=== PATIENT | female | born 1930 | race Caucasian/White ===

== ENCOUNTER 2016-11-09 17:42 | Inpatient (IN) | payer MEDICARE ==
[~2016-11-09] VITALS: Ht 157.5 cm; Wt 54.4 kg
[~2016-11-09 17:42] MED LIST: ACET-1087 PO; AMLO2.5T6 PO; DIT5 PO; ESCI20TA PO; FLUC100T6 PO; GABA100C PO; IMO2 PO; LISI-420 PO; SIMV10TA1 PO; TRAM50TA94 PO
[2016-11-09 17:54] VITALS: BP 113/62
[2016-11-09] MEDS ORDERED: NITROGLYCERIN 0.4 MG TAB SL ONE (17:55)
--- NOTE | 2016-11-09 18:05 | NUR ---
PT BIBA TO BED 5 AT THIS TIME.
[2016-11-09 18:10] LABS: BASOPHILS # (AUTO) 0.2 K/uL (0.00-0.22); EOSINOPHILS # (AUTO) 0.1 K/uL (0-0.4); EOSINOPHILS % (AUTO) 1.9 % (0.0-4.0); HEMATOCRIT 37.2 % (36-48); HEMOGLOBIN 12.1 g/dL (12.0-16.0); LYMPHOCYTES # (AUTO) 1.8 K/uL (2.5-16.5); LYMPHOCYTES % (AUTO) 29.1 % (20.5-51.1); MEAN CORPUSCULAR HEMOGLOBIN 29 pg (27-31); MEAN CORPUSCULAR HGB CONC 33 g/dL (33-37); MEAN CORPUSCULAR VOLUME 89 fL (80-94); MONOCYTES # (AUTO) 0.6 K/uL (0.8-1.0); MONOCYTES % (AUTO) 9.7 % (1.7-9.3); NEUTROPHILS # (AUTO) 3.6 K/uL (1.8-7.7); PLATELET COUNT (AUTO) 225 K/uL (140-450); RED BLOOD CELL COUNT(AUTO) 4.19 MIL/uL (4.20-5.40); RED CELL DISTRIBUTION WIDTH 13.3 % (11.6-13.7); WHITE BLOOD COUNT (AUTO) 6.3 K/uL (4.8-10.8)
--- NOTE | 2016-11-09 18:13 | NUR ---
PATIENT IS AN 86 YO FEMALE BIB EMS FROM [facility] FOR CHEST PAIN TERENCE.
[2016-11-09 18:25] LABS: ANION GAP 11.2 (8-16); CALCIUM 9.4 mg/dL (8.5-10.1); CHLORIDE 104 mmol/L (98-107); CREATININE 1.2 mg/dL (0.6-1.3); GLUCOSE 95 mg/dL (74-106); POTASSIUM 4.2 mmol/L (3.5-5.1); SODIUM SERUM 139 mmol/L (136-145); UREA NITROGEN, BLOOD 36 mg/dL (7-18)
[2016-11-09 18:28] LABS: INR 1.1 (0.8-1.2); PARTIAL THROMBOPLASTIN TIME 23.9 secs (22-35.6); PROTHROMBIN TIME 10.6 secs (10.8-13.4)
[2016-11-09 18:31] LABS: ALANINE AMINOTRANSFERASE 15 U/L (12-78); ALBUMIN 3.3 g/dL (3.4-5.0); ALKALINE PHOSPHATASE 65 U/L (46-116); ASPARTATE AMINOTRANSFERASE 12 U/L (15-37); TOTAL BILIRUBIN 0.3 mg/dL (0.0-1.0); TOTAL PROTEIN, SERUM 6.7 g/dL (6.4-8.2)
[2016-11-09] MEDS ORDERED: NACL 0.9% 1,000 ML IV ONE (18:55)
--- NOTE | 2016-11-09 19:13 | NUR ---
Pt report given to GERMÁN ROJAS. Transfer of care at this time.
[2016-11-09] MEDS ORDERED: LORazepam 1 MG TAB PO PRN (19:50)
[2016-11-09] MEDS ORDERED: HYDROcodone/APAP 5/325 MG 1 TAB TAB PO PRN (19:50)
[2016-11-09] MEDS ORDERED: ACETAMINOPHEN 325 MG TAB PO PRN (19:50)
[2016-11-09] MEDS ORDERED: ONDANSETRON 4 MG/2 ML VIAL IVP PRN (19:50)
[2016-11-09] MEDS ORDERED: LOPERAMIDE 2 MG CAP PO PRN (19:55)
[2016-11-09 20:22] LABS: CHOL/HDL RATIO 3.3 (1-4.5)
--- NOTE | 2016-11-09 20:45 | NUR ---
Patient will be admitted to care of DR GREEN. Admited to TELEMETRY. Will go to room 109B. Belongings list completed. Report to BELTRAN DUNLAP.
--- NOTE | 2016-11-09 21:13 | NUR ---
RECEIVED FROM ER PER EMMANUEL AWAKE AND WITH CONFUSION RT HX. DEMENTIA. SKIN INTACT. DAUGHTER AT BEDSIDE. PT. DX. OF CHEST PAIN /ANGINA. TELEMETRY MONITORING. NO SOB. DENIES PAIN. NO RESTLESSNESS NOTED. IVF SITE TO LEFT AC #22. SKIN INTACT. PT. AFEBRILE. DENIES ANY CHEST PAIN AT THIS TIME. MEDICATED WITH NITRO SL IN ER. TELEMETRY MONITORING. NSR WITH 1 DEGREE AVB NOTED. CARE PLANS DISCUSSED WITH DAUGHTER . CALL LIGHT DEMONSTRATED TO PT. AND DAUGHTER AND CALL LIGHT WITH IN REACH. PT. PLACED ON BED ALARM.
[2016-11-09 21:52] VITALS: BP 103/56
[2016-11-09] MEDS: NACL 0.9% 1,000 ML IV SCH (22:05)
[2016-11-09] MEDS: METOPROLOL 25 MG TAB PO SCH (22:06)
--- NOTE | 2016-11-09 22:18 | NUR ---
PT.S DAUGHTER LEFT. NOTICED MOTHER/PT IS ABLE TO TALK AND UNDERSTAND WELL. ABLE TO ANSWER QUESTIONS AND ABLE TO REMEMBER THINGS WELL FROM PAST. RE-ORIENTED TO CALL LIGHT USE AND WE BOTH AGREED TO PUT THE CALL LIGHT RIGHT BESIDE HER WHERE SHE CAN REACH IT IN BED. PT. WITH WEAKNESS RT TO OLD AGE PER DAUGHTER. ONLY WHEELCHAIR IS USED IN AMBULATING AROUND.
[2016-11-10] VITALS: BP 106/54
--- NOTE | 2016-11-10 01:11 | NUR ---
PT. STILL AWAKE AT THIS TIME. ENCOURAGED TO SLEEP. WATCHING TV. STATED SHE WILL SLEEP IN A LITTLE WHILE. TELEMETRY MONITORING.
--- NOTE | 2016-11-10 01:22 | NUR ---
SLEEPING. CALL LIGHT AT BEDSIDE. BED ALARM ON . NEEDS TO BE REMINDED RT FORGETFULNESS. BILATERAL SEQUENTIALS IN PLACE. TELEMETRY MONITORING.
--- NOTE | 2016-11-10 03:15 | NUR ---
PT. SLEEPING. TURNED TO SIDES BY CNAS. PILLOW SUPPORT TO PRESSURE AREAS. NO CHEST PAIN COMPLAINTS.
[2016-11-10 04:44] VITALS: BP 111/52
--- NOTE | 2016-11-10 05:23 | NUR ---
PT. BEEN SLEEPING BUT WAKES UP EASILY. NO CHEST PAIN NOTED. NEW IVF SITE TO LEFT HAND #22 INTACT AND INFUSING WELL.
--- NOTE | 2016-11-10 07:58 | NUR ---
RECEIVED REPORT FROM BELTRAN RN FOR CONTINUITY OF CARE . PATIENT AWAKE A/OX3 WITH A PERIOD OF CONFUSION. NO S/S OF RESP DISTRESS NOTED, NO COMPLAIN OF PAIN. INCONTINENT OF BOWEL AND BLADDER , SKIN IS INTACT . WILL OFFER BED GERBER Q2 HRS FOR BLADDER TRAINING, AND WILL REPOSITION Q2HRS TO PROTECT SKIN BREAKDOWN. IV SITE LT FOREARM GAUGE 22 INTACT AND PATENT. IVF INFUSING WELL. PLAN OF CARE DISCUSSED WITH THE PATIENT VITALS STABLE WILL CONTINUE TO MONITOR.
[2016-11-10 08:00] VITALS: BP 127/61
[2016-11-10] MEDS: NACL 0.9% 1,000 ML IV SCH ×3 (08:19→20:17)
[2016-11-10] MEDS: METOPROLOL 25 MG TAB PO SCH ×3 (09:00→20:21)
[2016-11-10] MEDS: DOCUSATE SODIUM 100 MG GELCAP PO SCH (09:07)
[2016-11-10] MEDS: ASPIRIN 81 MG TAB.CHEW PO SCH (09:07)
[2016-11-10] MEDS: ESCITALOPRAM 20 MG TAB PO SCH (09:07)
[2016-11-10] MEDS: OXYBUTYNIN 5 MG TAB PO SCH (09:08)
[2016-11-10] MEDS: LISINOPRIL 20 MG TAB PO SCH (09:08)
[2016-11-10] MEDS: GABAPENTIN 100 MG CAP PO SCH (09:08)
[2016-11-10] MEDS: amLODIPine 5 MG TAB PO SCH (09:08)
--- NOTE | 2016-11-10 09:12 | NUR ---
PATIENT HAS BEEN SCREENED AND CATEGORIZED HIGH NUTRITION RISK. PATIENT WILL BE SEEN WITHIN 1-2 DAYS OF ADMISSION. 11/10/16-11/11/[address]
[2016-11-10] MEDS: FLUCONAZOLE 100 MG TAB PO SCH (09:13)
--- NOTE | 2016-11-10 09:30 | NUR ---
DUE MEDS GIVEN TOLERATED WELL , MORNING CARE GIVEN AND REPOSITIONED AT THIS TIME.
--- NOTE | 2016-11-10 11:56 | NUR ---
Review faxed to [facility] at [phone]. Plan to go to [facility].
[2016-11-10 12:01] VITALS: BP 101/56
--- NOTE | 2016-11-10 12:05 | NUR ---
CONFUSED , REORIENTED HER TO THE PERSON AND PLACE , REPOSITIONED , VITALS STABLE NO DISCOMFORT NOTED AT THIS TIME.
--- NOTE | 2016-11-10 12:19 | NUR ---
11/10/16 RD INITIAL ASSESSMENT COMPLETED PLEASE REFER TO NUTRITION ASSESSMENT UNDER CARE ACTIVITY FOR ESTIMATED NUTRITIONAL NEEDS. 1. CONTINUE CARDIAC DIET 2. RD TO FOLLOW-UP 2-3 DAYS; HIGH RISK HARRY LEBLANC RD
--- NOTE | 2016-11-10 14:00 | NUR ---
RELAXED , NO DISTRESS NOTED MELISSA CARE GIVEN AND REPOSITIONED.
[2016-11-10] MEDS ORDERED: DONE10TA91 PO (14:09)
--- NOTE | 2016-11-10 15:00 | NUR ---
DAUGHTER AT THE BED SIDE , [employer] ADMINISTRATOR EXPLAINED THE CODE STATUS AND POLST SIGNED BY THE PATIENT'S DAUGHTER. PATIENT IS DNR.
[2016-11-10 16:15] VITALS: BP 98/43
--- NOTE | 2016-11-10 16:24 | NUR ---
TALKING TO THE DAUGHTER NO DISTRESS NOTED VITALS STABLE AT THIS TIME.
--- NOTE | 2016-11-10 19:20 | NUR ---
RECEIVED REPORT FROM GERMÁN JANG AT BEDSIDE. INITIAL ASSESSMENT COMPLETED. PT AAOX2; EPISODES OF CONFUSION AT TIMES. ORIENTED PT TO ROOM AND SURROUNDINGS; REINFORCEMENT NEEDED. PT'S SKIN IS INTACT. PT HAS IV ON LEFT FOREARM G 22 INFUSING FLUIDS WELL. SAFETY/FALL MEASURES IN PLACE. BED ALARM ON. WILL CONTINUE TO MONITOR PT.
--- NOTE | 2016-11-10 19:29 | NUR ---
SAFETY MAINTAINED CALL LIGHT IN REACH ENDORSE THE CARE TO BYRON DUNLAP
[2016-11-10 20:00] VITALS: BP 99/58
--- NOTE | 2016-11-10 20:00 | NUR ---
PT TURNED/REPOSITIONED. PT TOLERATED IT WILL.
[2016-11-10] MEDS: DONEPEZIL 10 MG TAB PO SCH (20:17)
--- NOTE | 2016-11-10 20:21 | NUR ---
PT TOLERATED 2100 MEDS WELL. LOPRESSOR NOT GIVEN DUE TO LOW BLOOD PRESSURE. WILL CONTINUE TO MONITOR PT.
[2016-11-10] MEDS ORDERED: SIMVASTATIN 10 MG TAB PO SCH (21:00)
--- NOTE | 2016-11-10 22:00 | NUR ---
PT WET; LINEN CHANGED. PT TURNED/REPOSITIONED. PT TOLERATED IT WILL.
--- NOTE | 2016-11-10 23:29 | NUR ---
PT AGITATED, CONFUSED, TRYING TO REMOVE IV. PT'S VS: BP 134/52, HR 65, T 98%, R 22. WILL GIVE ATIVAN PRESCRIBED.
[2016-11-11] VITALS: BP 134/52
--- NOTE | 2016-11-11 | NUR ---
PT TURNED/REPOSITIONED. PT TOLERATED IT WILL.
--- NOTE | 2016-11-11 02:00 | NUR ---
PT TURNED/REPOSITIONED. PT CONFUSED AT TIMES. PT STATED THAT SHE WANTS TO GET OUT OF THIS HOSPITAL. EXPLAINED TO PT WHY SHE IS HERE. WILL CONTINUE TO MONITOR.
--- NOTE | 2016-11-11 03:02 | NUR ---
PT SLEEPING; NO DISTRESS NOTED. BREATHING UNLABORED. WILL CONTINUE TO MONITOR PT.
[2016-11-11 04:00] VITALS: BP 112/62
--- NOTE | 2016-11-11 05:26 | NUR ---
PT TURNED/REPOSITIONED. PT TOLERATED IT WILL.
[2016-11-11 05:51] LABS: BASOPHILS # (AUTO) 0.1 K/uL (0.00-0.22); BASOPHILS % (AUTO) 2.1 % (0.0-2.0); EOSINOPHILS # (AUTO) 0.1 K/uL (0-0.4); EOSINOPHILS % (AUTO) 2.4 % (0.0-4.0); HEMOGLOBIN 11.1 g/dL (12.0-16.0); LYMPHOCYTES # (AUTO) 1.9 K/uL (2.5-16.5); LYMPHOCYTES % (AUTO) 35.1 % (20.5-51.1); MEAN CORPUSCULAR HEMOGLOBIN 30 pg (27-31); MEAN CORPUSCULAR HGB CONC 34 g/dL (33-37); MEAN CORPUSCULAR VOLUME 88 fL (80-94); MONOCYTES # (AUTO) 0.5 K/uL (0.8-1.0); MONOCYTES % (AUTO) 9.7 % (1.7-9.3); NEUTROPHILS # (AUTO) 2.9 K/uL (1.8-7.7); NEUTROPHILS % (AUTO) 50.7 % (42.2-75.2); PLATELET COUNT (AUTO) 205 K/uL (140-450); RED BLOOD CELL COUNT(AUTO) 3.74 MIL/uL (4.20-5.40); RED CELL DISTRIBUTION WIDTH 12.8 % (11.6-13.7); WHITE BLOOD COUNT (AUTO) 5.5 K/uL (4.8-10.8)
[2016-11-11 06:21] LABS: MAGNESIUM 1.5 mg/dL (1.8-2.4); PHOSPHORUS 3.1 mg/dL (2.5-4.9)
[2016-11-11 06:22] LABS: ANION GAP 10.8 (8-16); CALCIUM 8.6 mg/dL (8.5-10.1); CARBON DIOXIDE 26.2 mmol/L (21-32); CHLORIDE 105 mmol/L (98-107); CREATININE 0.9 mg/dL (0.6-1.3); GLUCOSE 76 mg/dL (74-106); SODIUM SERUM 138 mmol/L (136-145); UREA NITROGEN, BLOOD 20 mg/dL (7-18)
--- NOTE | 2016-11-11 07:10 | NUR ---
ENDORSED PLAN OF CARE TO DAY SHIFT NURSE. PT REMAINS IN STABLE CONDITION.
--- NOTE | 2016-11-11 07:11 | NUR ---
RECEIVED PT ASLEEP BUT EASILY AROUSABLE, AOX2, NO S/S OF RESPIRATORY DISTRESS OR DISCOMFORT, ON ROOM AIR, SKIN INTACT. WITH IV ACCESS AT LEFT FOREARM 22G INFUSING FLUIDS WELL. SAFETY PRECAUTIONS ENFORCED. DISCUSSED PLAN OF CARE, PT VERBALIZED UNDERSTANDING. CALL LIGHT WITHIN REACH, WILL CONTINUE TO MONITOR.
[2016-11-11 08:00] VITALS: BP 123/74
[2016-11-11] MEDS ORDERED: MAGNESIUM OXIDE 400 MG TAB PO SCH (08:23)
[2016-11-11] MEDS: GABAPENTIN 100 MG CAP PO SCH (08:40)
[2016-11-11] MEDS: DOCUSATE SODIUM 100 MG GELCAP PO SCH (08:41)
[2016-11-11] MEDS: amLODIPine 5 MG TAB PO SCH (08:42)
[2016-11-11] MEDS ORDERED: MAGNESIUM OXIDE 400 MG TAB ONE (08:42)
[2016-11-11] MEDS: ESCITALOPRAM 20 MG TAB PO SCH (08:42)
[2016-11-11] MEDS: ASPIRIN 81 MG TAB.CHEW PO SCH (08:42)
[2016-11-11] MEDS: LISINOPRIL 20 MG TAB PO SCH (08:44)
[2016-11-11] MEDS: METOPROLOL 25 MG TAB PO SCH (08:44)
[2016-11-11] MEDS: OXYBUTYNIN 5 MG TAB PO SCH (08:44)
[2016-11-11] MEDS: FLUCONAZOLE 100 MG TAB PO SCH (08:46)
--- NOTE | 2016-11-11 08:49 | NUR ---
DUE MEDS GIVEN, PT TOLERATED WELL. CALL LIGHT WITHIN REACH, WILL CONTINUE TO MONITOR
--- NOTE | 2016-11-11 10:21 | NUR ---
PT ASLEEP, NO SIGNS OF ACUTE DISTRESS. WILL CONTINUE TO MONITOR.
[2016-11-11 12:00] VITALS: BP 98/42
--- NOTE | 2016-11-11 12:19 | NUR ---
PT ASLEEP, NO SIGNS OF ACUTE RESPIRATORY DISTRESS NOTED. EASILY AROUSABLE, STATED SHE IS SLEEPY. KEPT COMFORTABLE
--- NOTE | 2016-11-11 12:54 | NUR ---
NOTIFIED DR JAMISON OF EKG RHYTHM SB 1ST AV BLOCK AND HEART RATE OF 46. WITH ORDERS TO HOLD METOPROLOL AT 2100. WILL ENDORSE TO COAL FEEDER OPERATOR
--- NOTE | 2016-11-11 12:54 | NUR ---
CM NOTE CONCURRENT REVIEW AND ORDER FOR HOME HEALTH FOR PHYSICAL THERAPY SENT TO [facility] FAX [phone] ATTN: TOMMY TORRES# [phone].
--- NOTE | 2016-11-11 13:43 | NUR ---
CM NOTE SPOKE WITH DIAN[facility] PH# [phone]. PATIENT ARRANGED FOR HOME HEALTH FOR PHYSICAL THERAPY WITH [facility] PH# [phone] AUTH# [id number]
--- NOTE | 2016-11-11 13:43 | NUR ---
SS NOTE: PER CECILIA FROM [facility] ([phone]), THEY WILL SCHEDULE A NURSE AND PHYSICAL THERAPIST TO SEE PT AT [facility] ON MONDAY.
--- NOTE | 2016-11-11 14:21 | NUR ---
PT ASLEEP, REFUSED LUNCH. STATED SHE WAS NOT ABLE TO SLEEP LAST NIGHT. NO SIGNS OF ACUTE DISTRESS, WILL CONTINUE TO MONITOR.
--- NOTE | 2016-11-11 15:45 | NUR ---
PT AWAKE, AGREED TO EAT SOUP. NO SIGNS OF DISTRESS NOTED. WILL CONTINUE TO MONITOR
[2016-11-11 16:00] VITALS: BP 99/48
--- NOTE | 2016-11-11 16:58 | NUR ---
WITH DAUGHTER AT BEDSIDE. PT AWAKE AND NO SIGN OF DISTRESS, WILL CONTINUE TO MONITOR.
[2016-11-11] MEDS ORDERED: traMADol 50 MG TAB PO PRN (17:10)
--- NOTE | 2016-11-11 18:41 | NUR ---
PT AWAKE SITTING ON BED, WATCHING TV, NO SIGNS OF ACUTE DISTRESS NOTED. CALL LIGHT WITHIN REACH, WILL CONTINUE TO MONITOR
--- NOTE | 2016-11-11 19:15 | NUR ---
ENDORSED PT TO AIDAN, COOK HELPER VEGETABLE IN STABLE CONDITION FOR CONTINUITY OF CARE
--- NOTE | 2016-11-11 19:16 | NUR ---
PATIENT IS CURRENTLY AWAKE ALERT RESTING IN BED PATIENT DENIES PAIN AND DISCOMFORT, PATIENT IS CURRENTLY RESTING IN BED, IVF INFUSING WELL IV SITE PATENT NEEDS MET.PATIENT CONTINUES TO BE ON FALL PRECAUTIONS.PATIENT CONTINUES TO WEAR HER SCD' S FOR DVT PROPHALAXIS. BED ALARM ON.CALL LIGHT WITHIN REACH.
[2016-11-11] MEDS: NACL 0.9% 1,000 ML IV SCH (19:49)
[2016-11-11 20:00] VITALS: BP 90/43
--- NOTE | 2016-11-11 20:00 | NUR ---
Patient's Plan of Care was discussed and reviewed with HAND CULTIVATOR: AIDAN WILLIS
--- NOTE | 2016-11-11 20:30 | NUR ---
PATIENT TURNED AND REPOSITIONED WITH THE ASSISTANCE OF KHUSHI MELO AND KHUSHI MONTALVO WILL CONTINUE TO MONITOR.
[2016-11-11] MEDS: DONEPEZIL 10 MG TAB PO SCH (21:23)
--- NOTE | 2016-11-11 21:23 | NUR ---
EDUCATION GIVEN ON HER ROUTINE MEDICATIONS AND PATIENT VERBALIZED UNDERSTANDING AND SHE TOOK HER MEDICATION WELL AND DRANK WATER FROM HER WATER BOTTLE.PATIENT STATES,"I FEEL COMFORTABLE AND READY TO GO TO BED." CALL LIGHT WITHIN REACH AND BED ALARM N WILL CONTINUE TO MONITOR.
--- NOTE | 2016-11-11 23:29 | NUR ---
PATIENT CURRENTLY SLEEPING IN BED NO PAIN OR DISCOMFORT NOTED.
--- NOTE | 2016-11-12 00:26 | NUR ---
PATIENT IS CURRENTLY RESTING IN BED CALL LIGHT WITHIN REACH.
--- NOTE | 2016-11-12 02:39 | NUR ---
PATIENT IS CURRENTLY SLEEPING COMFORTABLY IN BED IN NO DISTRESS.
--- NOTE | 2016-11-12 04:40 | NUR ---
PATIENT WAS GIVEN A WARM BLANKET PATIENT NEEDS MET WILL CONTINUE TO MONITOR.
[2016-11-12 05:10] VITALS: BP 110/52
[2016-11-12] MEDS: NACL 0.9% 1,000 ML IV SCH (05:14)
[2016-11-12 05:40] LABS: BASOPHILS # (AUTO) 0.2 K/uL (0.00-0.22); BASOPHILS % (AUTO) 2.8 % (0.0-2.0); EOSINOPHILS # (AUTO) 0.1 K/uL (0-0.4); EOSINOPHILS % (AUTO) 2.4 % (0.0-4.0); HEMATOCRIT 33.3 % (36-48); HEMOGLOBIN 10.9 g/dL (12.0-16.0); LYMPHOCYTES # (AUTO) 1.9 K/uL (2.5-16.5); LYMPHOCYTES % (AUTO) 33.6 % (20.5-51.1); MEAN CORPUSCULAR HEMOGLOBIN 29 pg (27-31); MEAN CORPUSCULAR HGB CONC 33 g/dL (33-37); MEAN CORPUSCULAR VOLUME 89 fL (80-94); MONOCYTES # (AUTO) 0.4 K/uL (0.8-1.0); MONOCYTES % (AUTO) 7.3 % (1.7-9.3); NEUTROPHILS % (AUTO) 53.9 % (42.2-75.2); PLATELET COUNT (AUTO) 201 K/uL (140-450); RED BLOOD CELL COUNT(AUTO) 3.74 MIL/uL (4.20-5.40); RED CELL DISTRIBUTION WIDTH 13.2 % (11.6-13.7); WHITE BLOOD COUNT (AUTO) 5.6 K/uL (4.8-10.8)
[2016-11-12 06:30] LABS: ALANINE AMINOTRANSFERASE 16 U/L (12-78); ALBUMIN 2.8 g/dL (3.4-5.0); ALKALINE PHOSPHATASE 45 U/L (46-116); ANION GAP 10.2 (8-16); ASPARTATE AMINOTRANSFERASE 11 U/L (15-37); CALCIUM 8.4 mg/dL (8.5-10.1); CHLORIDE 107 mmol/L (98-107); CREATININE 0.9 mg/dL (0.6-1.3); GLUCOSE 77 mg/dL (74-106); POTASSIUM 4.2 mmol/L (3.5-5.1); SODIUM SERUM 140 mmol/L (136-145); TOTAL BILIRUBIN 0.4 mg/dL (0.0-1.0); TOTAL PROTEIN, SERUM 5.7 g/dL (6.4-8.2); UREA NITROGEN, BLOOD 18 mg/dL (7-18)
--- NOTE | 2016-11-12 06:31 | NUR ---
PATIENT STABLE RESTING IN BED IN NO DISTRESS WILL CONTINUE TO MONITOR.
[2016-11-12 06:33] LABS: MAGNESIUM 1.4 mg/dL (1.8-2.4); PHOSPHORUS 2.9 mg/dL (2.5-4.9)
--- NOTE | 2016-11-12 07:38 | NUR ---
PATIENT STABLE REPORT ENDORSED TO RN CAPITAN AT BEDSIDE.
[2016-11-12 08:00] VITALS: BP 106/61
[2016-11-12] MEDS: GABAPENTIN 100 MG CAP PO SCH (08:47)
[2016-11-12] MEDS: ASPIRIN 81 MG TAB.CHEW PO SCH (08:47)
[2016-11-12] MEDS: DOCUSATE SODIUM 100 MG GELCAP PO SCH (08:48)
[2016-11-12] MEDS: LISINOPRIL 20 MG TAB PO SCH (08:48)
[2016-11-12] MEDS: ESCITALOPRAM 20 MG TAB PO SCH (08:48)
[2016-11-12] MEDS: amLODIPine 5 MG TAB PO SCH (08:49)
[2016-11-12] MEDS: FLUCONAZOLE 100 MG TAB PO SCH (08:52)
--- NOTE | 2016-11-12 09:30 | NUR ---
11/12/16 RD FOLLOW UP COMPLETED PLEASE REFER TO NUTRITION PROGRESS NOTE UNDER CARE ACTIVITY FOR ESTIMATED NUTRITION NEEDS. RD RECOMMENDATIONS: 1. CONTINUE ON RENAL DIET TOLERATED. 2. RD WILL F/U 5-7 DAYS; LOW RISK. KIMMIE PURI MS, RDN Addendum: 11/12/16 at [address] INCORRECT ENTRY; TO BE CORRECTED BY CLARITZAN Addendum: 11/12/16 at [address] UPDATED. 11/12/16 RD FOLLOW UP COMPLETED PLEASE REFER TO NUTRITION PROGRESS NOTE UNDER CARE ACTIVITY FOR ESTIMATED NUTRITION NEEDS. RD RECOMMENDATIONS: 1. CONTINUE ON CURRENT DIET. 2. RDN TO PROVIDE HEALTH SHAKE WITH ALL MEALS TID. 3. RD WILL F/U 5-7 DAYS; MODERATE RISK. KIMMIE PURI MS, RDN
--- NOTE | 2016-11-12 10:36 | NUR ---
SPOKE WITH DR. HUBBARD NOTIFIED REGARDING MAG LEVEL THIS MORNING.
[2016-11-12] MEDS ORDERED: MAG SULF 2000 MG/WATER PREMIX 50 ML IV ONE (11:15)
[2016-11-12] MEDS ORDERED: MAGNESIUM OXIDE 400 MG TAB PO SCH ×2 (12:45→13:35)
--- NOTE | 2016-11-12 16:25 | NUR ---
PATIENT DISCHARGED TO [facility] PICKED UP BY DAUGHTER NARAYAN IN A STABLE CONDITION. DISCHARGED EDUCATION GIVEN AND NARAYAN VERBALIZED UNDERSTANDING.
== END 2016-11-12 16:25 | disposition home health service (06) | DRG 205 ==
LOC: MED 17:42 → MTU 19:14
PROVIDERS: ADMIT Family Medicine; ATTEND Family Medicine
DX: M94.0 Chondrocostal junction syndrome [Tietze] (principal); N17.0 Acute kidney failure with tubular necrosis; E43 Unspecified severe protein-calorie malnutrition; I25.110 Atherosclerotic heart disease of native coronary artery with unstable angina pectoris; I10 Essential (primary) hypertension; F03.90 Unspecified dementia, unspecified severity, without behavioral disturbance, psychotic disturbance, mood disturbance, and anxiety; E78.00 Pure hypercholesterolemia, unspecified; Z66 Do not resuscitate; F32.9 Major depressive disorder, single episode, unspecified; E86.0 Dehydration; J45.909 Unspecified asthma, uncomplicated; Z53.29 Procedure and treatment not carried out because of patient's decision for other reasons; E83.42 Hypomagnesemia; R53.1 Weakness; Z68.21 Body mass index [BMI] 21.0-21.9, adult; Z88.2 Allergy status to sulfonamides; Z79.899 Other long term (current) drug therapy; Z71.3 Dietary counseling and surveillance
CPT/HCPCS: 36415; 71010; 80048; 80053; 83036; 83735; 83880; 84100; 84484; 85025; 85610; 85730; 87081; 93005; 96360; 97110; 97140; 97530; 99285; J3475; J7030

== ENCOUNTER 2016-11-26 21:23 | Inpatient (IN) | payer MEDICARE ==
[~2016-11-26] VITALS: Ht 160 cm; Wt 57.6 kg
[~2016-11-26 21:23] MED LIST changes: +DONE10TA91 PO
--- NOTE | 2016-11-26 21:23 | NUR ---
PATIENT BIB ALS TO ER BED 4.
[2016-11-26 21:29] VITALS: BP 111/57
--- NOTE | 2016-11-26 21:30 | NUR ---
86/F BIBA C/O ALOC x TODAY. EMS STATES THEY ARE CALLED ON SCENE BECAUSE PATIENT WAS UNRESPONSIVE, EMS STATES THEY ARRIVED AND PATIENT WAS ALOC. DAUGHTER STATES PATIENT STARTED ACTING CONFUSED TODAY. PT DENIES PAIN 0/10; VSS, PERRLA, BREATHING EVEN AND EFFORTLESS. PT UNABLE TO AMBULATE. ERMD NOTIFIED OF PATIENT STATUS.
[2016-11-26] MEDS ORDERED: NACL 0.9% 1,000 ML IV ONE (21:35)
--- NOTE | 2016-11-26 21:40 | NUR ---
PATIENT BEING EVALUATED BY DR. CALDERÓN.
[2016-11-26 22:09] LABS: BASOPHILS # (AUTO) 0.2 K/uL (0.00-0.22); BASOPHILS % (AUTO) 3.8 % (0.0-2.0); EOSINOPHILS # (AUTO) 0.2 K/uL (0-0.4); EOSINOPHILS % (AUTO) 2.8 % (0.0-4.0); HEMATOCRIT 33.7 % (36-48); MEAN CORPUSCULAR HEMOGLOBIN 29 pg (27-31); MEAN CORPUSCULAR HGB CONC 33 g/dL (33-37); MEAN CORPUSCULAR VOLUME 89 fL (80-94); MONOCYTES # (AUTO) 0.4 K/uL (0.8-1.0); MONOCYTES % (AUTO) 6.4 % (1.7-9.3); NEUTROPHILS # (AUTO) 3.1 K/uL (1.8-7.7); PLATELET COUNT (AUTO) 215 K/uL (140-450); RED CELL DISTRIBUTION WIDTH 12.9 % (11.6-13.7); WHITE BLOOD COUNT (AUTO) 5.9 K/uL (4.8-10.8)
[2016-11-26 22:22] LABS: ANION GAP 11.9 (8-16); CALCIUM 8.8 mg/dL (8.5-10.1); CARBON DIOXIDE 27.7 mmol/L (21-32); CHLORIDE 97 mmol/L (98-107); CREATININE 1.1 mg/dL (0.6-1.3); GLUCOSE 79 mg/dL (74-106); POTASSIUM 4.6 mmol/L (3.5-5.1); SODIUM SERUM 132 mmol/L (136-145); UREA NITROGEN, BLOOD 23 mg/dL (7-18)
[2016-11-26 22:24] LABS: PROTHROMBIN TIME 9.9 secs (10.8-13.4)
[2016-11-26 22:27] LABS: PARTIAL THROMBOPLASTIN TIME 18.4 secs (22-35.6)
[2016-11-26 22:30] LABS: LACTIC ACID 0.6 mmol/L (0.4-2.0)
[2016-11-26 22:37] LABS: ALANINE AMINOTRANSFERASE 14 U/L (12-78); ALBUMIN 3.3 g/dL (3.4-5.0); ALKALINE PHOSPHATASE 65 U/L (46-116); ASPARTATE AMINOTRANSFERASE 16 U/L (15-37); TOTAL BILIRUBIN 0.3 mg/dL (0.0-1.0); TOTAL PROTEIN, SERUM 6.5 g/dL (6.4-8.2)
--- NOTE | 2016-11-26 23:24 | NUR ---
PT RESTING, FAMILY AT BEDSIDE. VSS. PATIENT STATES PAIN OF 0/10 AT THIS TIME; VSS; PATIENT POSITIONED FOR COMFORT; HOB ELEVATED; BEDRAILS UP X2; BED DOWN. ER MD MADE AWARE OF PT STATUS.
[2016-11-27 00:01] LABS: APPEARANCE,URINE TURBID (CLEAR); COLOR,URINE YELLOW (YELLOW)
[2016-11-27 00:02] LABS: BILIRUBIN,URINE NEGATIVE (NEGATIVE); LEUKOCYTE ESTERASE ,URINE 3+ (NEGATIVE); NITRITE, URINE POSITIVE (NEGATIVE); PROTEIN,URINE TRACE (NEGATIVE); UGLUCOSE NEGATIVE (NEGATIVE); UROBILINOGEN,URINE 0.2 EU/dL (0.2 - 1)
[2016-11-27 00:03] LABS: BLOOD, URINE TRACE (NEGATIVE)
[2016-11-27 00:04] LABS: BACTERIA,URINE 4+ /HPF (None Seen); RBC,URINE 3-10 (FEW) /HPF (0-5); WBC,URINE TOO MANY TO COUNT /HPF (0-5)
[2016-11-27] MEDS ORDERED: LEVOFLOXACIN 500 MG/D5W PREMIX 100 ML IV ONE ×2 (00:10→15:00)
[2016-11-27] MEDS ORDERED: ONDANSETRON 4 MG/2 ML VIAL IVP PRN (01:10)
[2016-11-27] MEDS ORDERED: MORPHINE SULFATE 2 MG/ML SYR IVP PRN (01:10)
[2016-11-27] MEDS ORDERED: DOCUSATE SODIUM 100 MG GELCAP PO PRN (01:10)
[2016-11-27] MEDS ORDERED: ACETAMINOPHEN 325 MG TAB PO PRN (01:10)
--- NOTE | 2016-11-27 01:45 | NUR ---
Patient will be admitted to care of DR KUHN. Admited to TELE. Will go to room 123B. Belongings list completed. Report to BRYAN DUNLAP.
[2016-11-27 02:00] VITALS: BP 124/44
--- NOTE | 2016-11-27 02:00 | NUR ---
PATIENT ADMITTED TO UNIT FROM ED BROUGHT VIA GURNEY, PATIENT IS AAOX2, FORGETFUL, ON ROOM AIR, NO SOB OR SIGN OF DISTRESS, COOPERATIVE, COMPLAINS OF GENERALIZED PAIN THROUGHOUT BODY WHICH PATIENT STATES IS FROM ARTHRITIS. SKIN IS INTACT WITH BLANCHABLE SACRAL REDNESS. IV TO RIGHT AC PATENT AND INTACT. CONNECTED PATIENT TO TELE MONITOR, ORIENTED PATIENT TO ROOM, CALL LIGHT AND SURROUNDINGS, DISCUSSED PLAN OF CARE WITH PATIENT, PATIENT NEEDS REINFORCEMENT. VITAL SIGNS STABLE, CALL LIGHT WITHIN REACH. WILL CONTINUE TO MONITOR.
[2016-11-27 02:05] LABS: INR 1.1 (0.8-1.2); PARTIAL THROMBOPLASTIN TIME 24.9 secs (22-35.6); PROTHROMBIN TIME 10.5 secs (10.8-13.4)
[2016-11-27 02:15] LABS: AMPHETAMINE, URINE NEGATIVE ng/ml (NEG <=1000); BARBITURATE, URINE NEGATIVE ng/ml (NEG <=200); BENZODIAZEPINE, URINE NEGATIVE ng/mL (NEG <=200); CANNABINOID, URINE NEGATIVE ng/mL (NEG <=50); COCAINE, URINE NEGATIVE ng/mL (NEG <=300); OPIATE, URINE NEGATIVE ng/mL (NEG <=2000); PHENCYCLIDINE SCREEN,URINE NEGATIVE ng/mL (NEG <=25)
[2016-11-27] MEDS: NACL 0.9% 500 ML IV SCH ×4 (02:17→20:13)
[2016-11-27 02:20] LABS: ALBUMIN 2.8 g/dL (3.4-5.0); BILIRUBIN,DIRECT 0.1 mg/dL (0.0-0.3); CHOL/HDL RATIO 3.7 (1-4.5); FREE T4 (FREE THYROXINE) 1.01 ng/dL (0.76-1.46); THYROID STIMULATING HORMONE 4.05 uIU/mL (0.34-3.76); TOTAL BILIRUBIN 0.3 mg/dL (0.0-1.0); TOTAL PROTEIN, SERUM 5.7 g/dL (6.4-8.2)
[2016-11-27 04:00] VITALS: BP_SYST 120; BP_SYST 97; BP_DIAS 47; BP_DIAS 68
--- NOTE | 2016-11-27 04:00 | NUR ---
VITAL SIGNS STABLE, PATIENT RESTING IN BED COMFORTABLE, CALL LIGHT WITHIN REACH. WILL CONTINUE TO MONITOR
--- NOTE | 2016-11-27 07:25 | NUR ---
RECEIVED PT IN BED. AWAKE. ALERT, ORIENTED X2 FORGETFUL. NO SOB NOTED. DENIES ANY PAIN OR DISCOMFORT AT THIS TIME. PT INCONTINENT. ON BEDREST. SAFETY PRECAUTION IN PLACE. CALL LIGHT WITHIN REACH.
--- NOTE | 2016-11-27 07:30 | NUR ---
ENDORSED PATIENT TO DAY RN AT BEDSIDE, PATIENT IN STABLE CONDITION
[2016-11-27 08:00] VITALS: BP 101/56
[2016-11-27] MEDS: LACTOBACILLUS RHAMNOSUS GG 1 EACH CAP PO SCH (09:01)
[2016-11-27] MEDS: FAMOTIDINE 20 MG TAB PO SCH (09:01)
[2016-11-27] MEDS: PANTOPRAZOLE 40 MG INJ VIAL IVP SCH (09:01)
--- NOTE | 2016-11-27 11:44 | NUR ---
NARAYAN, DAUGHTER CAME TO SEE PT WITH HER , AND REQUESTED TO SEE THE DOCTOR REGARDING PT STATUS. DR. JAMISON MADE AWARE.
--- NOTE | 2016-11-27 11:54 | NUR ---
DR. JAMISON CAME TO SEE PT. AND EXPLAINED TO FAMILY REGARDING PT STATUS AND CONDITION. NARAYAN, DAUGHTER VERBALIZED UNDERSTANDING.
[2016-11-27 12:00] VITALS: BP 115/63
[2016-11-27] MEDS ORDERED: LOPERAMIDE 2 MG CAP PO SCH (13:50)
[2016-11-27] MEDS ORDERED: traMADol 50 MG TAB PO PRN (13:50)
[2016-11-27] MEDS ORDERED: ESCITALOPRAM 20 MG TAB PO SCH (14:20)
[2016-11-27] MEDS: ESCITALOPRAM 20 MG TAB PO SCH (14:43)
--- NOTE | 2016-11-27 15:48 | NUR ---
PT COMPLAINED OF SOB. CHECKED PT'S OS LEVEL AT 97 TO 100%. CALLED RT FOR FURTHER EVALUATION. CHECKED VITALS OF PT AT 97.6 T BP 107/59, HR 57, RR 20. RT CAME TO SEE PT, ASSESSED PT. PT SEEM TO BE NORMAL, NOT IN DISTRESS. DR. JAMISON MADE AWARE OF PT CONDITION. MD TO SEE PT.
[2016-11-27 16:00] VITALS: BP 107/59
[2016-11-27] MEDS ORDERED: ALBUTEROL SULFATE/IPRATROPIU 3 ML SOL IH PRN ×2 (16:05→19:00)
--- NOTE | 2016-11-27 16:25 | NUR ---
ASSESSMENT COMPLETED REVIEWED HX AND ANY DIAGNOSTIC TESTING LOC AWAKE AND ALERT ABLE TO ANSWER MOTORCYCLE REPAIRER QUESTIONS BREATH SOUNDS CLEAR WITH GOOD AERATION THROUGHOUT AND CHEST RISE SATURATION 98% ON ROOM AIR HR 53 RR16 PATIENT IS NOT APPROPRIATE FOR Q4 HHN THERAPY MOTORCYCLE REPAIRER TO REFER TO ORDERING PHYSICIAN DR. MITZI JAMISON (RES) OR PRIMARY DR. YOBANI KUHN
--- NOTE | 2016-11-27 16:30 | NUR ---
REVIEWED PATIENT ASSESSMENT WITH DR. YOBANI KUHN MD TO CHANGE HHN THERAPY ORDER TO PRN
--- NOTE | 2016-11-27 17:00 | NUR ---
PT AWAKE, ALERT ABLE TO MAKE NEEDS KNOWN. NO SIGNS AND SYMPTOMS OF ACUTE DISTRESS NOTED. NO SOB NOTED.
[2016-11-27] MEDS ORDERED: ALBUTEROL SULFATE/IPRATROPIU 3 ML SOL IH SCH (19:00)
--- NOTE | 2016-11-27 19:30 | NUR ---
RECEIVED REPORT FROM DAY RN AT BEDSIDE, PATIENT IS AAOX1, CONFUSED ON ROOM AIR, NO SOB OR SIGN OF DISTRESS AT THIS TIME, SKIN INTACT WITH SACRAL REDNESS NOTED. PATIENT COMPLAINT OF PAIN ALL OVER BODY, WILL MEDICATE, DISCUSSED PLAN OF CARE WITH PATIENT, PATIENT VERBALIZED UNDERSTANDING, REINFORCEMENT NEEDED, SAFETY MEASURES CHECKED, CALL LIGHT WITHIN REACH. WILL CONTINUE TO CLOSELY MONITOR.
--- NOTE | 2016-11-27 19:35 | NUR ---
ENDORSED PT TO NEXT SHIFT FOR CONTINUITY OF CARE. PT KEPT CLEAN, DRY, AND COMFORTABLE, NEEDS ATTENDED. NO SOB, DENIES ANY PAIN OR DISCOMFORT AT THIS TIME.
[2016-11-27 20:00] VITALS: BP 104/54
[2016-11-27] MEDS: LEVOFLOXACIN 750 MG/D5W PREMIX 150 ML IV SCH (20:12)
[2016-11-27] MEDS: HYDROcodone/APAP 5/325 MG 1 TAB TAB PO PRN (20:12)
[2016-11-27] MEDS: DONEPEZIL 10 MG TAB PO SCH (20:13)
[2016-11-27] MEDS: GABAPENTIN 100 MG CAP PO SCH (20:13)
--- NOTE | 2016-11-27 20:30 | NUR ---
PM MEDS ADMINISTERED, PATIENT TOLERATED WELL, CALL LIGHT WITHIN REACH, WILL CONTINUE TO MONITOR
--- NOTE | 2016-11-27 22:37 | NUR ---
PATIENT RESTING IN BED, NO SOB OR SIGN OF DISTRESS, CALL LIGHT WITHIN REACH. WILL CONTINUE TO MONITOR
[2016-11-28] VITALS: BP 94/49
--- NOTE | 2016-11-28 00:10 | NUR ---
VITAL SIGNS STABLE, NO SIGN OF DISTRESS, CALL LIGHT WITHIN REACH. WILL CONTINUE TO MONITOR
--- NOTE | 2016-11-28 02:30 | NUR ---
PATIENT RESTING IN BED, NO SOB OR SIGN OF DISTRESS, CALL LIGHT WITHIN REACH. WILL CONTINUE TO MONITOR
[2016-11-28 04:00] VITALS: BP 97/51
--- NOTE | 2016-11-28 04:00 | NUR ---
VITAL SIGNS STABLE, NO SOB OR SIGN OF DISTRESS, CALL LIGHT WITHIN REACH. WILL CONTINUE TO MONITOR
[2016-11-28] MEDS: NACL 0.9% 500 ML IV SCH ×2 (05:57→15:53)
[2016-11-28 06:03] LABS: BASOPHILS # (AUTO) 0.2 K/uL (0.00-0.22); EOSINOPHILS # (AUTO) 0.1 K/uL (0-0.4); EOSINOPHILS % (AUTO) 2.8 % (0.0-4.0); HEMATOCRIT 28.7 % (36-48); HEMOGLOBIN 9.7 g/dL (12.0-16.0); LYMPHOCYTES # (AUTO) 1.2 K/uL (2.5-16.5); LYMPHOCYTES % (AUTO) 23.9 % (20.5-51.1); MEAN CORPUSCULAR HEMOGLOBIN 30 pg (27-31); MEAN CORPUSCULAR HGB CONC 34 g/dL (33-37); MEAN CORPUSCULAR VOLUME 89 fL (80-94); MONOCYTES # (AUTO) 0.5 K/uL (0.8-1.0); MONOCYTES % (AUTO) 10.6 % (1.7-9.3); NEUTROPHILS # (AUTO) 2.8 K/uL (1.8-7.7); NEUTROPHILS % (AUTO) 58.7 % (42.2-75.2); PLATELET COUNT (AUTO) 176 K/uL (140-450); RED BLOOD CELL COUNT(AUTO) 3.23 MIL/uL (4.20-5.40); RED CELL DISTRIBUTION WIDTH 12.7 % (11.6-13.7); WHITE BLOOD COUNT (AUTO) 4.9 K/uL (4.8-10.8)
[2016-11-28 06:25] LABS: ANION GAP 12.3 (8-16); CARBON DIOXIDE 23.4 mmol/L (21-32); CHLORIDE 105 mmol/L (98-107); GLUCOSE 69 mg/dL (74-106); POTASSIUM 3.7 mmol/L (3.5-5.1); SODIUM SERUM 137 mmol/L (136-145); UREA NITROGEN, BLOOD 13 mg/dL (7-18)
[2016-11-28 06:27] LABS: MAGNESIUM 1.4 mg/dL (1.8-2.4); PHOSPHORUS 2.8 mg/dL (2.5-4.9)
--- NOTE | 2016-11-28 07:31 | NUR ---
ENDORSED PATIENT TO DAY RN AT BEDSIDE, PATIENT IN STABLE CONDITION
--- NOTE | 2016-11-28 07:32 | NUR ---
RECEIVED PT IN BED, AWAKE, ALERT ORIENTED X2. NO SOB NOTED. DENIES ANY PAIN OR DISCOMFORT AT THIS TIME. POSITIVE BOWEL SOUNDS NOTED ON FOUR QUADRANTS. PT IN CONTINENT. ON BEDREST. SAFETY PRECAUTION IN PLACE. CALL LIGHT WITHIN REACH.
[2016-11-28 08:00] VITALS: BP 116/62
--- NOTE | 2016-11-28 08:00 | NUR ---
PT SEEN BY DR. KUHN. PT VERBALIZED SHE IS SEEING BUGS ON THE CEILING ALARM. REORIENTED PT. PT MADE AWARE THAT IT'S NOT A BUG BUT THE SPRING HOLDING THE ALARM. PER DR. KUHN IF POSSIBLE TO MOVE PT TO ANOTHER ROOM. CHARGE NURSE MADE AWARE
--- NOTE | 2016-11-28 08:00 | NUR ---
TELEMONITOR READS SINUS JESSICA WITH 1ST DEGREE AV, HR DOWN TO 43. ASSESSED PT. PT AWAKE. VS FOLLOWS BP 116/62 HR 56. NO SOB NOTED DENIES ANY PAIN OR DISCOMFORT AT THIS TIME. PT AWAKE. RESPONSIVE. CAN VERBALIZE HER NEEDS.
[2016-11-28] MEDS ORDERED: MAG SULF 2000 MG/WATER PREMIX 50 ML IV SCH (08:47)
--- NOTE | 2016-11-28 08:52 | NUR ---
PATIENT HAS BEEN SCREENED AND CATEGORIZED MODERATE NUTRITION RISK. PATIENT WILL BE SEEN WITHIN 3-5 DAYS OF ADMISSION. 11/29/16-12/01/[address]
[2016-11-28] MEDS: PANTOPRAZOLE 40 MG INJ VIAL IVP SCH (08:53)
[2016-11-28] MEDS: LACTOBACILLUS RHAMNOSUS GG 1 EACH CAP PO SCH (08:53)
[2016-11-28] MEDS: FAMOTIDINE 20 MG TAB PO SCH (08:54)
[2016-11-28] MEDS: ESCITALOPRAM 20 MG TAB PO SCH (08:54)
[2016-11-28] MEDS: amLODIPine 5 MG TAB PO SCH (09:00)
[2016-11-28] MEDS ORDERED: LISINOPRIL 20 MG TAB PO SCH (09:00)
--- NOTE | 2016-11-28 10:00 | NUR ---
NO COMPLAINTS OF SEEING BUGS AT THIS TIME. PT AWAKE IN HER BED. NO SOB DENIES ANY PAIN OR DISCOMFORT AT THIS TIME.
[2016-11-28] MEDS ORDERED: LOPERAMIDE 2 MG CAP PO PRN (11:11)
--- NOTE | 2016-11-28 13:30 | NUR ---
DR. SORTO MADE AWARE OF GLUCOSE LAB RESULT DONE THIS MORNING WHICH IS 69, MADE AWARE THAT PT STILL ON NPO EXCEPT MEDS. AND CAN TOLERATED TAKING HER PILLS WHOLE WITH WATER WITHOUT COUGHING OR DIFFICULTY. MADE NEW ORDER AND CARRIED OUT.
--- NOTE | 2016-11-28 14:30 | NUR ---
OFFERED PT CLEAR APPLE JELLO. PT AGREED. CONSUMED 100% OF THE ONE CUP OF JELLO, WITHOUT DIFFICULTY. TOLERATED WELL. NO COUGHING, NO CHOKING NOTED. PT VERBALIZED SHE LIKED IT.
--- NOTE | 2016-11-28 14:51 | NUR ---
FAXED INITIAL REVIEW TO [facility] [phone] PHONE NARAYAN [phone]
--- NOTE | 2016-11-28 15:30 | NUR ---
NARAYAN DAUGHTER TO PT CAME TO SEE PT.
[2016-11-28 16:00] VITALS: BP 106/88
--- NOTE | 2016-11-28 18:00 | NUR ---
ASSISTED PT WITH EATING HER DINNER. PT CONSUMED 90% OF HER DINNER. TOLERATED WELL. NO SIGNS AND SYMPTOMS OF ACUTE DISTRESS NOTED. NO SOB. NOTED. PT VERBALIZED SHE ENJOYED HER DINNER.
--- NOTE | 2016-11-28 19:30 | NUR ---
PT AWAKE, ALERT. NO SOB, DENIES ANY PAIN OR DISCOMFORT AT THIS TIME. ENDORSED TO NEXT SHIFT FOR CONTINUITY OF CARE ON STABLE CONDITION.
--- NOTE | 2016-11-28 19:31 | NUR ---
RECD. RESTING IN BED, AWAKE, A/OX2, CONFUSED. RESPIRATION EVEN AND UNLABORED. IV OF NS AT 20 ML/HR INFUSING, RIGHT AC G 20. SEEING THINGS IN THE CEILING AND DOORWAY. REORIENTED TO HOSPITAL SETTING. PLAN OF CARE FOR THE SHIFT DISCUSSED. NEEDS REINFORCEMENT. DENIES PAIN 0/10.
--- NOTE | 2016-11-28 19:40 | NUR ---
PATIENT CONFUSED, PATIENT STATED THAT HER IS IN THE BATHROOM, ASKED ME TO OPEN THE BATHROOM DOOR SO HE CAN COME OUT
[2016-11-28] MEDS: HYDROcodone/APAP 5/325 MG 1 TAB TAB PO PRN (20:42)
[2016-11-28] MEDS: GABAPENTIN 100 MG CAP PO SCH (20:43)
[2016-11-28] MEDS: DONEPEZIL 10 MG TAB PO SCH (20:44)
--- NOTE | 2016-11-28 20:45 | NUR ---
DUE PO MEDICATIONS GIVEN. TOLERATED WELL. STILL WITH DELUSIONS.REORIENTED TO ENVIRONMENT.
[2016-11-28] MEDS: LEVOFLOXACIN 750 MG/D5W PREMIX 150 ML IV SCH (20:49)
--- NOTE | 2016-11-28 21:12 | NUR ---
Patient's Plan of Care was discussed and reviewed with ANASTASIYA: WAI.
[2016-11-29] VITALS: BP 116/60
--- NOTE | 2016-11-29 | NUR ---
RESTING COMFORTABLY IN BED. CALM, DOES NOT UTTER ANY WORDS OF CONFUSION.
--- NOTE | 2016-11-29 04:30 | NUR ---
CLEANSED AND MADE COMFORTABLE IN BED. COOPERATIVE.
[2016-11-29 06:23] LABS: BASOPHILS # (AUTO) 0.1 K/uL (0.00-0.22); BASOPHILS % (AUTO) 2.5 % (0.0-2.0); EOSINOPHILS # (AUTO) 0.1 K/uL (0-0.4); EOSINOPHILS % (AUTO) 2.3 % (0.0-4.0); HEMATOCRIT 30.1 % (36-48); LYMPHOCYTES # (AUTO) 1.4 K/uL (2.5-16.5); LYMPHOCYTES % (AUTO) 24.6 % (20.5-51.1); MEAN CORPUSCULAR HEMOGLOBIN 30 pg (27-31); MEAN CORPUSCULAR HGB CONC 33 g/dL (33-37); MEAN CORPUSCULAR VOLUME 90 fL (80-94); MONOCYTES # (AUTO) 0.5 K/uL (0.8-1.0); NEUTROPHILS # (AUTO) 3.4 K/uL (1.8-7.7); NEUTROPHILS % (AUTO) 61.6 % (42.2-75.2); PLATELET COUNT (AUTO) 205 K/uL (140-450); RED BLOOD CELL COUNT(AUTO) 3.35 MIL/uL (4.20-5.40); RED CELL DISTRIBUTION WIDTH 12.7 % (11.6-13.7); WHITE BLOOD COUNT (AUTO) 5.5 K/uL (4.8-10.8)
[2016-11-29 06:33] LABS: ANION GAP 11.8 (8-16); CALCIUM 8.1 mg/dL (8.5-10.1); CARBON DIOXIDE 23.9 mmol/L (21-32); CHLORIDE 102 mmol/L (98-107); GLUCOSE 78 mg/dL (74-106); POTASSIUM 3.7 mmol/L (3.5-5.1); SODIUM SERUM 134 mmol/L (136-145); UREA NITROGEN, BLOOD 11 mg/dL (7-18)
--- NOTE | 2016-11-29 06:52 | NUR ---
CONDITION REMAIN STABLE. WILL ENDORSE TO AM NURSE FOR CONTINUITY OF CARE.
--- NOTE | 2016-11-29 07:20 | NUR ---
ENDORSED TO Cecelia MAYORGA FOR CONTINUITY OF CARE.
--- NOTE | 2016-11-29 07:21 | NUR ---
RECEIVED REPORT ON PT AT BEDSIDE FROM SOFTWARE QUALITY AUTOMATION ENGINEER NURSE. PT IS SLEEPING. SCDS ON. UPDATED THE BOARD. PT HAS IV ON R AC 20 G NS@20ML/HR. PT HAS SACRAL REDNESS ON L SIDE. CALL LIGHT WITHIN REACH. WILL CONTINUE TO MONITOR.
[2016-11-29 08:00] VITALS: BP 114/59
--- NOTE | 2016-11-29 08:00 | NUR ---
PT HAD 100ML OF VEGETABLE SOUP, TOLERATED AND SWALLOWED WELL. REFUSED TO EAT MORE, STATED THAT SHE CAN'T SWALLOW. ENCOURAGED PT TO EAT BUT PT STILL REFUSED. CALL LIGHT WITHIN REACH. WILL CONTINUE TO MONITOR.
[2016-11-29] MEDS: amLODIPine 5 MG TAB PO SCH (09:00)
--- NOTE | 2016-11-29 09:00 | NUR ---
PT VOIDED ON PAD. CLEANED AND CHANGED PT, GAVE PT SPONGE BATH. PT TOLERATED WELL. WILL CONTINUE TO MONITOR.
[2016-11-29] MEDS: PANTOPRAZOLE 40 MG INJ VIAL IVP SCH (09:08)
[2016-11-29] MEDS: FAMOTIDINE 20 MG TAB PO SCH (09:09)
[2016-11-29] MEDS: LACTOBACILLUS RHAMNOSUS GG 1 EACH CAP PO SCH (09:09)
[2016-11-29] MEDS: ESCITALOPRAM 20 MG TAB PO SCH (09:10)
[2016-11-29] MEDS: LISINOPRIL 10 MG TAB PO SCH (09:10)
--- NOTE | 2016-11-29 10:02 | NUR ---
SPOKE TO DR REGARDING LOW MAG LEVEL. WILL PUT IN ORDER.
--- NOTE | 2016-11-29 10:05 | NUR ---
SPOKE TO REGARDING PT'S URINE CULTURE RESULT.
[2016-11-29] MEDS ORDERED: MAG SULF 2000 MG/WATER PREMIX 50 ML IV SCH (10:17)
[2016-11-29] MEDS ORDERED: MAGNESIUM OXIDE 400 MG TAB PO SCH (10:46)
--- NOTE | 2016-11-29 11:50 | NUR ---
[place] [facility] [phone] PHONE NARAYAN [phone]
--- NOTE | 2016-11-29 13:20 | NUR ---
PT IS SLEEPING IN BED. NO SIGNS OF DISTRESS NOTED. MAG RIDER STILL INFUSING. CALL LIGHT WITHIN REACH. WILL CONTINUE TO MONITOR.
--- NOTE | 2016-11-29 14:11 | NUR ---
PT VOIDED ON PAD. CLEANED AND CHANGED PT. PT TOLERATED WELL. SPOKE TO DR REGARDING PT'S SACRAL REDNESS. DR WILL PUT IN ORDER.
[2016-11-29 16:00] VITALS: BP 117/63
--- NOTE | 2016-11-29 16:20 | NUR ---
PT VOIDED ON PAD. CLEANED PT AND CHANGED PAD. APPLIED Z-GUARD. REPOSITIONED PT. PT TOLERATED WELL. CALL LIGHT WITHIN REACH. WILL CONTINUE TO MONITOR.
[2016-11-29] MEDS ORDERED: NITROFURANTOIN 100 MG CAP PO SCH (17:00)
--- NOTE | 2016-11-29 17:40 | NUR ---
ASSISTED PT WITH DINNER. PT TOLERATED CLEAR LIQUID WELL.
--- NOTE | 2016-11-29 19:15 | NUR ---
ENDORSED PT TO CERTIFIED REGISTERED NURSE PRACTITIONER NURSE AT BEDSIDE. PT IN STABLE CONDITION.
--- NOTE | 2016-11-29 19:16 | NUR ---
RECD. RESTING IN BED, AWAKE, A/OX2. RESPIRATION EVEN AND UNLABORED. IV OF NS AT 20 ML/HR INFUSING RIGHT AC G20. NO HALLUCINATION NOTED. WATCHING TV. SAFETY MEASURES ENFORCED. PLAN OF CARE FOR THE SHIFT DISCUSSED. NEEDS REINFORCEMENT. DENIES PAIN 0/10.
[2016-11-29] MEDS: DONEPEZIL 10 MG TAB PO SCH (20:51)
[2016-11-29] MEDS: GABAPENTIN 100 MG CAP PO SCH (20:51)
[2016-11-29] MEDS ORDERED: cefTAZidime 500 MG in DEXTROSE 5% 50 ML IV SCH (21:00)
--- NOTE | 2016-11-29 21:00 | NUR ---
Patient's Plan of Care was discussed and reviewed with VACUUM CONDITIONER OPERATOR: WAI BENEDICT
--- NOTE | 2016-11-29 21:03 | NUR ---
DUE PO MEDICATIONS GIVEN, TOLERATED WELL.
[2016-11-29] MEDS: HYDROcodone/APAP 5/325 MG 1 TAB TAB PO PRN (21:04)
[2016-11-29] MEDS: Z-GUARD PASTE TP SCH (21:07)
[2016-11-30] VITALS: BP 117/43
--- NOTE | 2016-11-30 | NUR ---
SLEEPING COMFORTABLY IN BED.
[2016-11-30] MEDS: NACL 0.9% 500 ML IV SCH (01:58)
--- NOTE | 2016-11-30 04:00 | NUR ---
SPONGE BATH DONE, REPOSITIONED WITH PILLOWS FOR COMFORT.
[2016-11-30 06:17] LABS: BASOPHILS # (AUTO) 0.2 K/uL (0.00-0.22); BASOPHILS % (AUTO) 3.9 % (0.0-2.0); EOSINOPHILS # (AUTO) 0.1 K/uL (0-0.4); EOSINOPHILS % (AUTO) 2.7 % (0.0-4.0); HEMATOCRIT 29.9 % (36-48); LYMPHOCYTES # (AUTO) 1.4 K/uL (2.5-16.5); LYMPHOCYTES % (AUTO) 25.9 % (20.5-51.1); MEAN CORPUSCULAR HEMOGLOBIN 30 pg (27-31); MEAN CORPUSCULAR HGB CONC 34 g/dL (33-37); MEAN CORPUSCULAR VOLUME 88 fL (80-94); MONOCYTES # (AUTO) 0.5 K/uL (0.8-1.0); MONOCYTES % (AUTO) 9.3 % (1.7-9.3); NEUTROPHILS # (AUTO) 3.2 K/uL (1.8-7.7); NEUTROPHILS % (AUTO) 58.2 % (42.2-75.2); PLATELET COUNT (AUTO) 197 K/uL (140-450); RED BLOOD CELL COUNT(AUTO) 3.38 MIL/uL (4.20-5.40); RED CELL DISTRIBUTION WIDTH 12.9 % (11.6-13.7); WHITE BLOOD COUNT (AUTO) 5.4 K/uL (4.8-10.8)
[2016-11-30 06:48] LABS: CALCIUM 8.3 mg/dL (8.5-10.1); CARBON DIOXIDE 24.4 mmol/L (21-32); CHLORIDE 102 mmol/L (98-107); CREATININE 1.2 mg/dL (0.6-1.3); GLUCOSE 76 mg/dL (74-106); POTASSIUM 3.4 mmol/L (3.5-5.1); SODIUM SERUM 135 mmol/L (136-145); UREA NITROGEN, BLOOD 10 mg/dL (7-18)
--- NOTE | 2016-11-30 07:00 | NUR ---
CONDITION REMAIN STABLE. ENDORSED TO GERMÁN FRANCISCO FOR CONTINUITY OF CARE.
--- NOTE | 2016-11-30 07:50 | NUR ---
PATIENT LYING COMFORTABLY IN BED, DENIES ANY PAIN, NO SIGNS OF DISTRESS NOTED. PATIENT ALERT AND AWAKE, FOLLOWS COMMAND.
[2016-11-30 08:00] VITALS: BP 107/50
[2016-11-30] MEDS: LACTOBACILLUS RHAMNOSUS GG 1 EACH CAP PO SCH (09:34)
[2016-11-30] MEDS: PANTOPRAZOLE 40 MG INJ VIAL IVP SCH (09:34)
[2016-11-30] MEDS: FAMOTIDINE 20 MG TAB PO SCH (09:35)
[2016-11-30] MEDS: ESCITALOPRAM 20 MG TAB PO SCH (09:35)
[2016-11-30] MEDS: LISINOPRIL 10 MG TAB PO SCH (09:36)
[2016-11-30] MEDS: amLODIPine 5 MG TAB PO SCH (09:36)
[2016-11-30] MEDS: Z-GUARD PASTE TP SCH (09:41)
--- NOTE | 2016-11-30 11:11 | NUR ---
CM NOTE FAXED CONCURRENT REVIEW TO [facility] [phone] PHONE NARAYAN [phone]
[2016-11-30] MEDS ORDERED: PANT40PD7 IVP (12:33)
[2016-11-30] MEDS ORDERED: ACET-1182 PO (12:33)
[2016-11-30] MEDS ORDERED: ZGUARD TP (12:33)
[2016-11-30] MEDS ORDERED: LACT10CA PO (12:33)
[2016-11-30] MEDS ORDERED: ONDA2SOL45 IVP (12:33)
[2016-11-30] MEDS ORDERED: MORP2SOL18 IVP (12:33)
[2016-11-30] MEDS ORDERED: FAMO20TA13 PO (12:33)
[2016-11-30] MEDS ORDERED: HEPA500055 SUBQ (12:33)
[2016-11-30] MEDS ORDERED: ACET-9525 PO (12:33)
[2016-11-30] MEDS ORDERED: DOCU-67 PO (12:33)
[2016-11-30] MEDS ORDERED: AMLO5TAB4 PO (12:33)
[2016-11-30] MEDS ORDERED: IPRA3AMP IH (12:33)
[2016-11-30] MEDS ORDERED: cefTAZidime 500 MG in DEXTROSE 5% 50 ML IV SCH (13:00)
--- NOTE | 2016-11-30 13:30 | NUR ---
PHYSICAL THERAPY CO-SIGN The Physical Therapy Progress Notes documented by Steel Box Toe Inserter have been reviewed. Reviewed/Co-Signed by: Shivani Hurt, PT Documentation Done by: Artur Asif PTA I concur with the documentation of this GL[facility]HER. Plan: continue PT as per plan of care if she remains in this hospital. Addendum: 11/30/16 at 1340 by Shivani Hurt PT Amended: Links added.
--- NOTE | 2016-11-30 13:37 | NUR ---
CM NOTE PER CM NARAYAN OF [facility] PH# [phone] TRANSPORT AUTH# [id number] FOR [facility] AND AUTH# [id number] FOR [facility]. SPOKE WITH LORIE OF [facility] PH# [phone] TO SET UP PATIENT TRANSPORT SERVICE TEAM LEADER TIME 1600 GOING TO [facility] [address], NUMBER TO CALL FOR REPORT [phone]. CHARGE NURSE SARIAH MARRERO
--- NOTE | 2016-11-30 13:55 | NUR ---
Social Service Note: Per Kanwal from [facility] , patient may go to room 113B, she stated patient may be transfer to their facility at any time, accepting physician , I informed patient's daughter Coni Rivera and case hardener Maria Teresa of this.
--- NOTE | 2016-11-30 14:20 | NUR ---
Spoke with Coni Rivera (daughter) regarding her mother's discharge to [facility] ([facility]) and she verbalized understanding of discharge.
--- NOTE | 2016-11-30 14:31 | NUR ---
Report given to Dea melgar [facility] ([facility])
[2016-11-30 16:00] VITALS: BP 104/61
--- NOTE | 2016-11-30 16:20 | NUR ---
Patient left the unit in a stable condition via ambulance going to [facility].
== END 2016-11-30 16:20 | DRG 56 ==
LOC: MED 21:23 → MTU 11-27 01:10
PROVIDERS: ADMIT Family Medicine; ATTEND Family Medicine
DX: G30.9 Alzheimer's disease, unspecified (principal); G93.41 Metabolic encephalopathy; N17.0 Acute kidney failure with tubular necrosis; E43 Unspecified severe protein-calorie malnutrition; F02.81 Dementia in other diseases classified elsewhere, unspecified severity, with behavioral disturbance; N39.0 Urinary tract infection, site not specified; I42.9 Cardiomyopathy, unspecified; E87.1 Hypo-osmolality and hyponatremia; Z66 Do not resuscitate; I48.91 Unspecified atrial fibrillation; M19.90 Unspecified osteoarthritis, unspecified site; Z16.24 Resistance to multiple antibiotics; F32.9 Major depressive disorder, single episode, unspecified; J45.909 Unspecified asthma, uncomplicated; G62.9 Polyneuropathy, unspecified; I10 Essential (primary) hypertension; G90.9 Disorder of the autonomic nervous system, unspecified; E83.42 Hypomagnesemia; B96.20 Unspecified Escherichia coli [E. coli] as the cause of diseases classified elsewhere; Z90.49 Acquired absence of other specified parts of digestive tract; Z98.49 Cataract extraction status, unspecified eye; Z79.899 Other long term (current) drug therapy; Z88.2 Allergy status to sulfonamides; Z88.8 Allergy status to other drugs, medicaments and biological substances; Z90.710 Acquired absence of both cervix and uterus; Z68.22 Body mass index [BMI] 22.0-22.9, adult
CPT/HCPCS: 36415; 70450; 71010; 80048; 80053; 80076; 80305; 81001; 82150; 83036; 83605; 83690; 83735; 83880; 84100; 84439; 84443; 84484; 85025; 85610; 85730; 87040; 87081; 87086; 87186; 93005; 93880; 96361; 96365; 97110; 97116; 97140; 97530; 99285; C9113; J0696; J0713; J1644; J1956; J2270; J3475; J7030; J7060; Q0092